=== PATIENT | female | born 1985 | race Caucasian/White ===

== ENCOUNTER 2016-07-01 07:08 | Outpatient (CLI) | payer OTHER | END 2016-07-01 07:09 | disposition home or self-care (01) | DX: R53.83 Other fatigue (principal) ==

== ENCOUNTER 2016-07-01 07:12 | Outpatient (CLI) | payer OTHER | END 2016-07-01 07:13 | disposition home or self-care (01) | DX: N91.2 Amenorrhea, unspecified (principal) ==

== ENCOUNTER 2016-07-03 08:00 | Outpatient (CLI) | payer OTHER | END 2016-07-03 08:01 | DX: Z33.1 Pregnant state, incidental (principal); N93.9 Abnormal uterine and vaginal bleeding, unspecified ==

== ENCOUNTER 2016-09-04 08:30 | Outpatient (CLI) | payer OTHER ==
[2016-09-04 12:50] LABS: EOSINOPHILS % (AUTO) 0.3 %; HCT - HEMATOCRIT 35.6 % (37.0-47.0); HGB - HEMOGLOBIN 12.2 g/dL (12.0-16.0); LYMPHOCYTES # (AUTO) 0.7 10^3/uL (1.5-3.5); MEAN CORPUSCULAR HEMOGLOBIN 30.5 pg (27.0-31.0); MEAN CORPUSCULAR HGB CONC 34.3 g/dL (32.0-36.0); MONOCYTES # (AUTO) 0.6 10^3/uL (0.0-1.0)
[2016-09-04 12:53] LABS: BASOPHILS % (AUTO) 0.3 %; EOSINOPHILS # (AUTO) 0.1 10^3/uL (0.0-0.7); LYMPHOCYTES % (AUTO) 4.9 %; MEAN CORPUSCULAR VOLUME 88.9 fL (81.0-99.0); MEAN PLATELET VOLUME 8.7 fL (7.9-10.8); NEUTROPHILS # (AUTO) 13.6 10^3/uL (1.5-6.6); NEUTROPHILS % (AUTO) 90.5 %; RED CELL DISTRIBUTION WIDTH 13.5 % (12.0-15.0)
[2016-09-04 13:14] LABS: BILIRUBIN,TOTAL 0.4 mg/dL (0.2-1.0); CALCIUM 9.5 mg/dL (8.5-10.3); CREATININE 0.6 mg/dL (0.4-1.0); POTASSIUM 3.5 mmol/L (3.5-5.0); TOTAL PROTEIN 7.1 g/dL (6.7-8.2)
[2016-09-06 13:17] LABS: TEST RESULT REPORT (())
== END 2016-09-04 08:31 | disposition home or self-care (01) ==
LOC: LAB.WCP 08:30
PROVIDERS: ATTEND Physician Assistant Medical
DX: R10.32 Left lower quadrant pain (principal); N93.9 Abnormal uterine and vaginal bleeding, unspecified; Z33.1 Pregnant state, incidental; R30.0 Dysuria; N76.0 Acute vaginitis
CPT/HCPCS: 36415; 80053; 81599; 85025; 87070; 87077; 87086; 87205; 87255; 87480; 87491; 87510; 87591; 87660

== ENCOUNTER 2017-03-27 08:00 | Outpatient (CLI) | payer OTHER | END 2017-03-27 08:01 | disposition home or self-care (01) | LOC: LAB.WCP 08:00 | PROVIDERS: ATTEND Physician Assistant Medical | DX: O46.91 Antepartum hemorrhage, unspecified, first trimester (principal) | CPT/HCPCS: 36415; 84702 ==

== ENCOUNTER 2017-03-29 13:03 | Outpatient (CLI) | payer OTHER | END 2017-03-29 13:04 | disposition home or self-care (01) | LOC: LAB 13:03 | PROVIDERS: ATTEND Physician Assistant Medical | DX: O46.91 Antepartum hemorrhage, unspecified, first trimester (principal) | CPT/HCPCS: 84702 ==

== ENCOUNTER 2017-11-19 09:21 | Inpatient (IN) | payer OTHER ==
[2017-11-19] MEDS ORDERED: fentaNYL 100 MCG/2 ML VIAL IVP PRN (09:55)
[2017-11-19] MEDS ORDERED: ONDANSETRON 4 MG/2 ML VIAL IVP PRN ×2 (09:55→18:28)
[2017-11-19] MEDS ORDERED: SODIUM CHLORIDE FLUSH 0.9% 10 ML SYRINGE IVP PRN (09:55)
[2017-11-19] MEDS ORDERED: OXYTOCIN/SODIUM CHLORIDE 500 ML IV SCH (10:00)
--- NOTE | 2017-11-19 10:00 | HISTORY & PHYSICAL EXAMINATION ---
Admit History - Instructions Morongo/Slash: -Left hand click circles element as positive or present. -Right hand click slashes element as negative or not present. - Visit Reason Visit Reason: Contractions (x18 hours, SROM @ 0400 for thick MSAF), Membranes rupture - : 2 Parity: 0 Premature: 0 Ectopic: 0 : 1 Care: positive: Other (Dr. Vides in [facility]) Risk/History: positive: Other (hx IUFD for potential cervical incompetence @ 15 weeks' EGA; cerclage placed this by Dr. Vides at [facility], on an unspecified antibiotic t/o , no progestin therapy, no MFM consult; cerclage removed @ 37 weeks' gestation) Complications This : positive: Other (hx IUFD for potential cervical incompetence @ 15 weeks' EGA; cerclage placed this by Dr. Vides at [facility], on an unspecified antibiotic t/o , no progestin therapy, no MFM consult; cerclage removed @ 37 weeks' gestation) - Mother's Labs Mother's Blood Type: positive: A Mother's RH: positive: Positive GBS: positive: Group B Step Negative Rubella Status: positive: Immune Review of Systems - Constitutional Constitutional: reports: Fatigue. denies: Fever, Chills - Cardiovascular Cariovascular: denies: Irregular heart rate, Palpitations, Chest pain, Edema - Respiratory Respiratory: reports: SOB with exertion. denies: Cough - Gastrointestinal Gastrointestinal: reports: Abdominal pain (described as severe contraction pain) . denies: Constipation, Diarrhea, Change in bowel habits, Nausea, Vomiting - Genitourinary Genitourinary: reports: Frequency, Urgency. denies: Dysuria - Musculoskeletal Musculoskeletal: reports: Back pain. denies: Muscle pain, Stiffness - Integumentary Integumentary: denies: Rash, Pruritis, Lesions - Neurological Neurological: denies: General weakness, Focal weakness, Headache, Dizziness, Numbness - Psychiatric Psychiatric: reports: Depression (described as severe, without medication; states that he is her only source of comfort & can modulate her anxiety) , Anxiety - All Other Systems All Other Systems: reports: Other (+FM, +LOF, thick MSAF since 0400) Physical - Abdominal Exam Contraction Frequency (min/apart): 3-5 Contraction Intensity: positive: Mild to moderate Uterine Resting Tone: positive: Soft - Monitoring Heart Rate Baseline: 140 Strip Review: positive: Category I - Presentation Presentation: positive: Vertex - Vaginal Exam Membranes: positive: Membranes ruptured (leaking copious thick mSAF) Dilation (in cm): 2 Effacement (%): 90 Station: positive: 0 Cervical Position: positive: Posterior - Speculum Exam Speculum Exam Performed: positive: No Findings: positive: Gross leak (thick MSAF) - Other Notes Labor Progress Note/Additional Text: Joana Young (CARA) is a 32 y/o @ 39w4d by LMP, consistent w/ 20-wk anatomy scan (only imaging on file) who presents accompanied by her , Allan, & two licensed midwives from the [facility]. Licensed midwives have limited information regarding her care, which was transferred to them by Dr. Vides from [facility] in [place], after cerclage removal at 37 weeks' gestation. They report that she presented to the center this morning @ 0800 & was found to be completely dilated w/ moderate MSAF (SROM @ 0400) at that time. She has been pushing since. They did not think they would make it to the hospital for delivery but transferred for MSAF. She reports that her water broke @ 0400 & she perceived it as clear at that time. She has been having intense uterine contractions since 1900 yesterday evening. Her reports that her care has been complicated by a hx of second trimester demise that was presumed secondary to cervical incompetence. She underwent cervical cerclage placement at [facility] by Dr. Vides this and took an unspecified antibiotic for the duration of her to prevent infection. She did not have consultation w/ MFM providers & was not on progestin therapy at any point during her . She has an anatomy scan that is available for review that is normal w/o evidence of previa. She reports she is GBS negative & that her screening labs have all be WNL, although these are not available for review @ this time. On examination, she is found to have copious thick MSAF & her SVE is 2/90/0, posterior, soft. She was hoping for no intervention & an unmedicated delivery. She is screaming in pain w/ each contraction & is extremely anxious. Her is supportive but seems moderately frazzled & reports that they are both exhausted from the duration of discomfort & lack of any restful sleep overnight. They are dismayed by the cervical exam. PMH: anxiety, depression, hx suicide attempt, bupropion 150mg XL daily & citalopram 30mg po daily PSH: D&E x2 , 12 weeks & 15 weeks OBhx: SAB x2, one at 12 weeks & 15 weeks, D&E for each GYNhx: Denies hx of STI, reports normal paps in past, HX bv SocHx: to Allan, denies DV; denies ETOH/drugs/tobacco Famhx: noncontributory PE: GEN: Gravid female, wailing in pain, unable to open eyes HEENT: Grossly normocephalic, atraumatic, assessment limited by pt behavior RESP: Unable to assess secondary to pt behavior CARDIAC: Unable to assess secondary to pt behavior ABD: Unable to assess secondary to pt intolerance, unwillingness to change positions : No lesion, copious thick MSAF, SVE: 2/90/0, posterior, soft OB: EFM BL 135bpm, +accels, occ variable decels to larry in 100s w/ spontaneous return to baseline <60 seconds, moderate variability; TOCO: UCs q3-5 min x60 seconds, palpably moderate MS: FROM t/o, but pt unwilling to move secondary to extreme discomfort, no clear deformity, no lesion SKIN: warm, well-perfused, c/d/i, multiple tattoos, piercings NEURO: Unable to adequately assess secondary to pt behavior PSYCH: extreme agitation & anxiety Plan for Labor - Plan For Labor I expect patient to be DC'd or transferred within 96 hours.: Yes Plan for Labor: 1. Extensive review of clinical scenario & need for pain management @ this time , reviewed all modalities of analgesia & recommended epidural placement, pt only interested in use of N2O @ this time, full PARQ held, will begin 2. Admit to inpatient status, place IV, CBC/type & screen for protracted labor 3. Reviewed protracted labor process, SROM x6 hours, implications of thick MSAF ; pt declines augmentation @ this time, will reassess cervical status x2 hours & augment w/ Pitocin if no cervical change @ that time 4. Awaiting remainder of medical records from [facility] 5. Continuous EFM for thick MSAF 6. Epidural PRN per pt request 7. Discussed clinical scenario w/ Classifications Officer Cc/Cm Dr. Lilian Garcia MD, who is aware of need for pediatric attendance @ delivery, will continue to update as labor progresses 8. Reviewed plan of care w/ pt, partner, RN @ bedside; all in agreement, without concerns; Dr. Stella MD, back-up SCREW MACHINE OPERATOR SINGLE SPINDLE apprised of clinical scenario
--- NOTE | 2017-11-19 10:37 | PROVIDER PROGRESS NOTE ---
Subjective - Prog Note Date Prog Note Date: 11/19/17 Prog Note Time: 10:30 - Subjective Subjective: Using N2O via self-administered mask w/ some utility, still wailing during contractions; & one LM @ bedside, supportive. Declines anesthesia @ this time. Assessment/Plan - Problem List (1) Thick meconium stained amniotic fluid Impression: Early vs. prodromal labor, dysfunctional pattern GBS negative Records received: had been taking augmentin 875mg/125mg po daily s/p placement of her cervical cerclage at [facility]; allergic to Sulfa & azithromycin; Garrett cervical cerclage placed in 4cm long cervix 05/19/[address] Vides, records indicate elective TAB followed by 1 SAB @ 15 weeks' gestation w/ 2cm cervical dilation & delivery of demised fetus, taken to OR for placental extraction/D&C but fetus delivered spontaneously, all screening labs this noted to be WNL, 1-hr gtt oddly 68mg/dL, GBS negative, UA in first trimester grew out significant gardnerella, unclear whether tx'ed or not. No MFM consultation.
[2017-11-19 10:44] LABS: BASOPHILS # (AUTO) 0.1 10^3/uL (0.0-0.1); BASOPHILS % (AUTO) 0.4 %; HGB - HEMOGLOBIN 12.4 g/dL (12.0-16.0); LYMPHOCYTES # (AUTO) 0.7 10^3/uL (1.5-3.5); LYMPHOCYTES % (AUTO) 4.7 %; MEAN CORPUSCULAR HEMOGLOBIN 29.3 pg (27.0-31.0); MEAN CORPUSCULAR HGB CONC 34.7 g/dL (32.0-36.0); MEAN CORPUSCULAR VOLUME 84.5 fL (81.0-99.0); MEAN PLATELET VOLUME 9.6 fL (7.9-10.8); MONOCYTES # (AUTO) 0.3 10^3/uL (0.0-1.0); NEUTROPHILS # (AUTO) 14.2 10^3/uL (1.5-6.6); NEUTROPHILS % (AUTO) 92.9 %; PLT - PLATELET COUNT 188 10^3/uL (130-450); RED BLOOD COUNT 4.25 10^6/uL (4.20-5.40); RED CELL DISTRIBUTION WIDTH 13.2 % (12.0-15.0); WHITE BLOOD COUNT 15.3 x10^3/uL (4.8-10.8)
[2017-11-19] MEDS ORDERED: WITCH HAZEL/GLYCERIN 1 EACH MED..PAD TOP PRN (12:05)
[2017-11-19] MEDS: LACTATED RINGERS 1,000 ML IV SCH ×3 (17:12→19:08)
[2017-11-19] MEDS: ACETAMINOPHEN 325 MG TABLET PO SCH (17:16)
[2017-11-19] MEDS: SODIUM CHLORIDE FLUSH 0.9% 10 ML SYRINGE IVP SCH (17:17)
--- NOTE | 2017-11-19 17:17 | PROVIDER PROGRESS NOTE ---
Labor Progress Note - Uterine Monitoring Uterine Monitoring Mode: positive: External toco Contraction Frequency (min/apart): 3-5 Contraction Intensity: positive: Moderate Uterine Resting Tone: positive: Soft - Monitoring Monitor Mode: positive: External ultrasound Heart Rate Baseline: 135 Heart Rate Variability: positive: Moderate (6-25 bmp) Accelerations: positive: Present, 15x15 Decelerations: positive: None Strip Review: positive: Category I - Vaginal Exam Dilation (in cm): 4 Effacement (%): 100 Station: 1 Cervical Position: Anterior (KARLA positioning) - Labor Progress Note Labor Progress Note/Additional Text: S: Mariella is screaming w/ contractions. , Allan, & LM are present @ the bedside & supportive. She has resisted intervention to this point, although she has used N2O w/ some relief. O: AAOx3, distressed gravid female VSSE EFM: BL 135bpm, +accels, no decels, mod madhuri TOCO: UCs q3-5 min x60 seconds, palpably moderate SVE: 4/100/+1, ongoing leakage of copious thick MSAF, position KARLA A: 32 y/o @ 39w4d by LMP w/ concordant 20-wk US, transfer from [facility] for MSAF Minimal cervical change management manager a period of 7 hours Inadequate pain control w/ N2O as only agent GBS negative, SROM x13.25 hours, afebrile FHTs cat I, thick MSAF Unusual hx of cerclage placement in 4cm cervix w/ hx IUFD @ 16 weeks' gestation P: 1. Extensive review of clinical scenario w/ pt, partner & LM, reviewed risks of continuing w/ dysfunctional labor pattern & risks r/t prolonged ROM & recommend adequate anesthesia w/ intervention as clinically warranted thereafter 2. Recommend Pitocin augmentation s/p epidural placement, pt & partner concur 3. Reviewed plan of care w/ pt, partner, RN @ bedside; all in agreement, without concerns; anesthesia notified of desire for epidural. Dr. Stella MD, back up TYPECASTING MACHINE OPERATOR apprised of clinical scenario, concurs w/ plan of care
[2017-11-19] MEDS ORDERED: fent/BUPIV 2 MCG/0.125% 250 ML EP ONE (17:41)
[2017-11-19] MEDS ORDERED: ePHEDrine 50 MG/ML VIAL IVP ONE (18:00)
[2017-11-19] MEDS ORDERED: diphenhydrAMINE INJ 50 MG/ML VIAL IVP PRN (18:28)
[2017-11-19] MEDS ORDERED: fent/BUPIV 2 MCG/0.125% 250 ML EP PRN (18:28)
[2017-11-19] MEDS ORDERED: NALBUPHINE 10 MG/ML AMP IVP PRN (18:28)
[2017-11-19 19:19] LABS: BILIRUBIN,URINE NEGATIVE (NEGATIVE); GLUCOSE, URINE (UA) NEGATIVE (NEGATIVE); KETONES,URINE (UA) >=80 mg/dL (NEGATIVE); LEUKOCYTE ESTERASE, URINE NEGATIVE (NEGATIVE); NITRITE,URINE NEGATIVE (NEGATIVE); OCCULT BLOOD,URINE SMALL (NEGATIVE); PROTEIN,URINE NEGATIVE (NEGATIVE); UROBILINOGEN,URINE 0.2 (NORMAL) E.U./dL (NORMAL)
[2017-11-19 19:21] LABS: CLARITY,URINE CLEAR (CLEAR)
[2017-11-19 19:32] LABS: BACTERIA,URINE None Seen /HPF (None Seen); SQUAMOUS EPITHELIAL CELL,UR FEW Squamous (<= Few)
[2017-11-19] MEDS: OXYTOCIN/SODIUM CHLORIDE 500 ML IV SCH (22:01)
--- NOTE | 2017-11-19 22:25 | PROVIDER PROGRESS NOTE ---
Labor Progress Note - Uterine Monitoring Contraction Frequency (min/apart): q6 Contraction Intensity: positive: Mild Uterine Resting Tone: positive: Soft - Monitoring Monitor Mode: positive: External ultrasound Heart Rate Variability: positive: Moderate (6-25 bmp) Accelerations: positive: Present, 10x10 (=/32 wks) Decelerations: positive: None Strip Review: positive: Category I - Vaginal Exam Dilation (in cm): 6 Effacement (%): 80% Station: 1 Cervical Position: Midposition - Labor Progress Note Labor Progress Note/Additional Text: Progress of labor has been slow due to infrequent and mild contractions. I performed Dennis palpation and estimate the weight to be 7 pounds and a KARLA position. Scant fluid on glove with no blood. Patient is reported to have thick neck on presentation but this was not demonstrated on the current exam. I discussed the current clinical situation with the patient and her partner. Slow progress is expected given the inadequacy of the uterine contractions. Clinically the pelvis seems adequate for 7-1/2 pound baby. She has been ruptured since 444 and prolonged rupture increases chances of the chorion amnionitis, uterus refractory to Pitocin, section and sepsis. It is advantageous to hasten labor progress at this point with Pitocin drip. Explained the mechanism of Pitocin, titration schedule and disadvantages including hyper stim, occult cord prolapse and resultant . Balanced against the high likelihood of slow progress and cysts ascending infection Pitocin is best. After explanation family concurs and Pitocin augmentation orders were written
[2017-11-19 22:42] LABS: BASOPHILS # (AUTO) 0.2 10^3/uL (0.0-0.1); BASOPHILS % (AUTO) 0.9 %; HGB - HEMOGLOBIN 11.2 g/dL (12.0-16.0); MEAN CORPUSCULAR HEMOGLOBIN 29.6 pg (27.0-31.0); MEAN CORPUSCULAR HGB CONC 34.7 g/dL (32.0-36.0); MEAN CORPUSCULAR VOLUME 85.3 fL (81.0-99.0); MEAN PLATELET VOLUME 9.4 fL (7.9-10.8); MONOCYTES # (AUTO) 0.6 10^3/uL (0.0-1.0); MONOCYTES % (AUTO) 3.9 %; NEUTROPHILS # (AUTO) 14.9 10^3/uL (1.5-6.6); NEUTROPHILS % (AUTO) 89.2 %; PLT - PLATELET COUNT 205 10^3/uL (130-450); RED BLOOD COUNT 3.78 10^6/uL (4.20-5.40); RED CELL DISTRIBUTION WIDTH 13.4 % (12.0-15.0); WHITE BLOOD COUNT 16.7 x10^3/uL (4.8-10.8)
[2017-11-20] MEDS: LACTATED RINGERS 1,000 ML IV SCH (06:22)
[2017-11-20] MEDS ORDERED: CITALOPRAM 10 MG TABLET PO SCH (09:00)
[2017-11-20] MEDS ORDERED: LIDOCAINE 1% 50 ML MDV TD SCH (10:00)
[2017-11-20] MEDS ORDERED: MINERAL OIL LIGHT 10 ML MC SCH (10:00)
[2017-11-20] MEDS: OXYTOCIN/SODIUM CHLORIDE 250 ML IV ONE ×2 (10:30→15:30)
--- NOTE | 2017-11-20 10:48 | PROVIDER PROGRESS NOTE ---
Labor Progress Note - Uterine Monitoring Uterine Monitoring Mode: positive: External toco Contraction Frequency (min/apart): q3 Contraction Intensity: positive: Moderate Uterine Resting Tone: positive: Soft - Monitoring Monitor Mode: positive: External ultrasound Heart Rate Baseline: 125 Heart Rate Variability: positive: Moderate (6-25 bmp) Accelerations: positive: Present, 15x15 Decelerations: positive: None Strip Review: positive: Category I - Vaginal Exam Dilation (in cm): 9 Effacement (%): 80% Station: 1 Cervical Position: Anterior - Labor Progress Note Labor Progress Note/Additional Text: Patient is progressed through the active phase of labor and is now near completion. No meconium was observed on my exam. Previously heavy meconium was noted and therefore will alert Dr. Abdoul Shukla management assistant to standby for . We will not have patient push until Dr. Shukla is close at hand.
--- NOTE | 2017-11-20 10:51 | PROVIDER PROGRESS NOTE ---
Subjective - Prog Note Date Prog Note Date: 11/20/17 Prog Note Time: 05:20 - Subjective Subjective: 0300 cervical check reported as 7 cm's 0 station by nursing. Category 1 strip. Augmentation continues.. Objective - Vital Signs/Intake & Output Intake & Output: Intake & Output 11/17/17 11/18/17 11/19/17 11/20/17 23:59 23:59 23:59 23:59 Intake Total 1000 1000 Balance 1000 1000 - Lab Results Fish Bones: 11/19/17 22:30 Other Labs: Lab Results x24hrs 11/19/17 11/19/17 11/19/17 Range/Units 22:30 22:30 18:50 WBC 16.7 H (4.8-10.8) x10^3/uL RBC 3.78 L (4.20-5.40) 10^6/uL Hgb 11.2 L (12.0-16.0) g/dL Hct 32.3 L (37.0-47.0) % MCV 85.3 (81.0-99.0) fL MCH 29.6 (27.0-31.0) pg MCHC 34.7 (32.0-36.0) g/dL RDW 13.4 (12.0-15.0) % Plt Count 205 (130-450) 10^3/uL MPV 9.4 (7.9-10.8) fL Neut # (Auto) 14.9 H (1.5-6.6) 10^3/uL Lymph # (Auto) 1.0 L (1.5-3.5) 10^3/uL Dukes # (Auto) 0.6 (0.0-1.0) 10^3/uL Eos # (Auto) 0.0 (0.0-0.7) 10^3/uL Baso # (Auto) 0.2 H (0.0-0.1) 10^3/uL Absolute Nucleated RBC 0.00 x10^3/uL Nucleated RBC % 0.0 /100WBC Urine Color YELLOW Urine Clarity CLEAR (CLEAR) Urine pH 6.0 (5.0-7.5) PH Ur Specific Basile 1.010 (1.002-1.030) Urine Protein NEGATIVE (NEGATIVE) mg/dL Urine Glucose (UA) NEGATIVE (NEGATIVE) mg/dL Urine Ketones >=80 H (NEGATIVE) mg/dL Urine Occult Blood SMALL H (NEGATIVE) Urine Nitrite NEGATIVE (NEGATIVE) Urine Bilirubin NEGATIVE (NEGATIVE) Urine Urobilinogen 0.2 (NORMAL) (NORMAL) E.U./dL Ur Leukocyte Esterase NEGATIVE (NEGATIVE) Urine RBC 6-10 H (0-5) /HPF Urine WBC 0-3 (0-5) /HPF Ur Squamous Epith Cells FEW Squamous (<= Few) Urine Bacteria None Seen (None Seen) /HPF Ur Microscopic Review INDICATED Urine Culture Comments NOT INDICATED Blood Type Blood Type Recheck A POSITIVE Antibody Screen 11/19/17 11/19/17 Range/Units 10:25 10:25 WBC 15.3 H (4.8-10.8) x10^3/uL RBC 4.25 (4.20-5.40) 10^6/uL Hgb 12.4 (12.0-16.0) g/dL Hct 35.9 L (37.0-47.0) % MCV 84.5 (81.0-99.0) fL MCH 29.3 (27.0-31.0) pg MCHC 34.7 (32.0-36.0) g/dL RDW 13.2 (12.0-15.0) % Plt Count 188 (130-450) 10^3/uL MPV 9.6 (7.9-10.8) fL Neut # (Auto) 14.2 H (1.5-6.6) 10^3/uL Lymph # (Auto) 0.7 L (1.5-3.5) 10^3/uL Dukes # (Auto) 0.3 (0.0-1.0) 10^3/uL Eos # (Auto) 0.0 (0.0-0.7) 10^3/uL Baso # (Auto) 0.1 (0.0-0.1) 10^3/uL Absolute Nucleated RBC 0.01 x10^3/uL Nucleated RBC % 0.0 /100WBC Urine Color Urine Clarity (CLEAR) Urine pH (5.0-7.5) PH Ur Specific Basile (1.002-1.030) Urine Protein (NEGATIVE) mg/dL Urine Glucose (UA) (NEGATIVE) mg/dL Urine Ketones (NEGATIVE) mg/dL Urine Occult Blood (NEGATIVE) Urine Nitrite (NEGATIVE) Urine Bilirubin (NEGATIVE) Urine Urobilinogen (NORMAL) E.U./dL Ur Leukocyte Esterase (NEGATIVE) Urine RBC (0-5) /HPF Urine WBC (0-5) /HPF Ur Squamous Epith Cells (<= Few) Urine Bacteria (None Seen) /HPF Ur Microscopic Review Urine Culture Comments Blood Type A POSITIVE Blood Type Recheck Antibody Screen NEGATIVE
--- NOTE | 2017-11-20 10:54 | PROVIDER PROGRESS NOTE ---
Labor Progress Note - Uterine Monitoring Uterine Monitoring Mode: positive: External toco Contraction Frequency (min/apart): Contractions every 2.5 minutes Contraction Intensity: positive: Moderate Uterine Resting Tone: positive: Soft - Monitoring Monitor Mode: positive: External ultrasound Heart Rate Variability: positive: Moderate (6-25 bmp) Accelerations: positive: Present, 15x15 Decelerations: positive: Early Strip Review: positive: Category I - Vaginal Exam Dilation (in cm): 10 Effacement (%): 100% Station: 2 - Labor Progress Note Labor Progress Note/Additional Text: Patient began pushing at 0742 hrs. and is currently expanding a good effort. Good support and coaching. Upbeat mood. Currently doing push and stretch method as well as perineal hot packs. Descent is not been as rapid as desired and discussed possibility of vacuum-assisted delivery.
--- NOTE | 2017-11-20 10:58 | DELIVERY NOTE ---
Delivery Note - Labor Labor: positive: Augmented by oxytocin - Delivery Method Delivery Method: positive: Vacuum assist - Presentation Presentation: positive: KARLA - left occiput anterior - Nuchal Cord Nuchal Cord: positive: None - Anesthetic Anesthetic Type: Anesthetic: positive: Lidocaine - 1% plain Volume: positive: Other (20 cc) - Amniotic Fluid Description Amniotic Fluid Description: positive: Moderate meconium (Previously reported as thick meconium), Other (Non-foul) - Vacuum Use Indication for Vacuum Use: positive: Shortening of 2nd stage for maternal benefit Type of Vacuum Cup: positive: Cup: Rigid Vacuum Extraction: positive: Successful Number of pop-offs: 1 - Episiotomy Type Episiotomy Type: positive: None - Laceration Laceration: positive: 2nd degree (Midline; no extension into the anal sphincter rectum) - Suture Suture Type: positive: Vicryl Suture Size: positive: 2-0, 3-0 - Delivery Outcome Delivery Outcome: positive: Livebirth - [place]: positive: Placed in direct skin contact with mother, Suctioned, Warmed , Other (Dr. Abdoul Shukla of pediatrics in attendance reference his notes.) sex: positive: Female ( time 1003 hrs. Weight 6 pounds 4.3 ounces; Apgars 7/9) - Cord Cord: positive: 3 vessels (No cord entanglement) - Placenta Placenta: positive: Intact, Other (Grade 2 placenta) - Estimated Blood Loss Estimated Blood Loss (in cc): 400 - Post Delivery Events Post Delivery Events: positive: No post delivery events - Delivery Comments (Free Text/Narrative) Delivery Comments (Free Text/Narrative): Mrs. Young pushed with good effort for over an hour and a half. During that time prep portion stretch method of perineal massage was used. The head was fairly fixed at a KARLA position +2. I attempted on several occasions to turn it to the OA. Patient became fatigued. We had an informed discussion on the use of vacuum or forceps delivery to facilitate the labor. She understands vacuum requires her continued effort and may be uncomfortable. Risks of vacuum include cephalohematoma, shoulder dystocia, laceration or episiotomy, and failed vacuum necessitating emergent section. Patient gave verbal permission for the application of the vacuum. At a resting phase the Kiwi vacuum was demonstrated to the patient. She states she understands that she used and had read about it. Vacuum was then slipped into the vagina and applied to the vertex at the flexion point. With the next push the vacuum was pumped to the green zone and appropriate amount of pressure/ traction applied, respecting the pelvic axis. First application move the head down from +2 to +3-4. Patient noted increased pain and pressure and was encouraged to breathe through. Second application was done and once again appropriate of vacuum setting and traction was applied. This moved the head to near and converted presentation to OA but resulted in pop-off. Mineral oil was used to lubricate the vagina. Perineal massage was continued. Third application effected vaginal delivery. Once again appropriate pressure and traction was applied which resulted in extension.. Head was atraumatically delivered but shoulders resulted in midline laceration. There were no difficulties in delivering the shoulders, patient was anxious and pushed spontaneously. The was then placed on the maternal abdomen under Dr. Johnson's supervision. When cord pulsations stopped, the cord was doubly clamped intent transected. Cord blood samples and cord blood samples were sent. After initial. Of time with the mother was moved to warmer. Reference Dr. Shukla's notes. weight = 6 pounds, 4.3 ounces; Apgars 7/9; arterial cord pH 7.195 with base excess of -7.8 venous cord pH 7.304 base excess -5.6 The vaginal laceration was inspected and the extent assessed. Vaginal packing was used to tamp and on bleeding and to provide clear access to the laceration. The perineal area was injected with 20 cc of 1% lidocaine and good anesthetic effect was present. The vaginal tube was reconstructed with a running interlocked stitch of 2-0 Vicryl. Crowns stitch was made with 2-0 Vicryl. Interrupted sutures of 2-0 Vicryl were used to close the deep space. The anal sphincter was visualized and not encroached on. Perineal skin was closed with multiple interrupted sutures of 3-0 Vicryl. Post repair rectal exam confirmed no intraluminal stitches. The placenta was delivered intact shortly thereafter. It was inspected and found to be grade 2. Bleeding was stemmed with uterine massage and Pitocin. Mother father bonded well with baby. Baby began up breast-feeding shortly after .
[2017-11-20] MEDS ORDERED: diphenhydrAMINE 25 MG CAPSULE PO PRN (11:15)
[2017-11-20] MEDS ORDERED: ZOLPIDEM 5 MG TABLET PO PRN (11:15)
[2017-11-20] MEDS ORDERED: WITCH HAZEL/GLYCERIN 1 EACH MED..PAD TOP PRN (11:15)
[2017-11-20] MEDS ORDERED: HYDROCORTISONE/PRAMOXINE 10 GM PR PRN (11:15)
[2017-11-20] MEDS: IBUPROFEN 600 MG TABLET PO SCH ×2 (13:00→22:33)
[2017-11-20] MEDS: buPROPion XL 150 MG TABLET PO SCH (13:07)
[2017-11-20] MEDS: HYDROcod/ACETAM 5/325 MG TABLET PO PRN ×3 (13:47→22:33)
[2017-11-20] MEDS: SERTRALINE 25 MG TABLET PO SCH (14:33)
[2017-11-20] MEDS: DOCUSATE SODIUM 100 MG CAPSULE PO SCH (21:25)
[2017-11-21] MEDS: HYDROcod/ACETAM 5/325 MG TABLET PO PRN ×3 (03:45→12:44)
--- NOTE | 2017-11-21 07:29 | PROVIDER PROGRESS NOTE ---
Subjective - General Admit Date: 11/19/17 Procedure Date: 11/20/17 Post Op Days: 1 Procedure Performed: Low vacuum delivery with midline laceration repair - Review of Systems Wound/Incisions: positive: Healing well General: positive: No symptoms HEENT: positive: No symptoms Pulmonary: positive: No symptoms Cardiovascular: positive: No symptoms Gastrointestinal: positive: No symptoms, Flatus Genitourinary: positive: Other ("Sore bottom" No foul lochia, no bulges no reported problems) Musculoskeletal: positive: No symptoms Skin: positive: No symptoms All Other Systems: positive: Other (+FM, +LOF, thick MSAF since 0400) Objective - Patient Data Vital Signs: Vital Signs x48h Temp Pulse Resp BP Pulse Ox 11/21/17 03:47 97.7 F 57 L 20 109/71 100 11/21/17 00:15 98.2 F 69 16 109/69 98 Weight: Weight 11/19/17 11/20/17 11/21/17 23:59 23:59 23:59 Weight (kg) 150 kg Intake & Output: Intake and Output Totals x24h 11/19/17 11/20/17 11/21/17 23:59 23:59 23:59 Intake Total 1000 1662.483 Output Total 1425 Balance 1000 237.483 - Lab Results Lab Results: 11/19/17 22:30 Other Lab Results: Lab Results x24hrs 11/19/17 Range/Units 22:30 Blood Type Recheck A POSITIVE - Current Medications Current Medications: Current Medications Generic Name Dose Route Start Last Admin Trade Name Freq PRN Reason Stop Dose Admin Acetaminophen 650 mg 11/19/17 10:00 11/19/17 17:16 Tylenol PO Not Given Q6H ELI Hydrocodone Bitart/Acetaminophen 1 tab 11/20/17 11:15 11/21/17 03:45 [place] 5/325 PO 1 tab Q4HR PRN Administration PAIN Bupropion HCl 150 mg 11/20/17 09:00 11/20/17 13:07 Wellbutrin Xl PO 150 mg DAILY ELI Administration Docusate Sodium 100 mg 11/20/17 21:00 11/20/17 21:25 Colace 100mg Capsule PO 100 mg BID ELI Administration Hydrocortisone/Pramoxine 1 spray 11/20/17 11:15 11/20/17 12:00 Epifoam SC 1 spray QID PRN Administration Hemorrhoids Oxytocin/Sodium Chloride 500 mls @ 1 mls/hr 11/19/17 22:15 11/20/17 10:30 Pitocin/Sodium Chloride IV 0 milliunit/min TITR ELI 0 mls/hr 1 MILLIUNIT/MIN Titration Ibuprofen 600 mg 11/20/17 12:00 11/20/17 22:33 Motrin PO 600 mg Q6H ELI Administration Ondansetron HCl 4 mg 11/19/17 09:55 11/19/17 18:29 Zofran Inj IVP 4 mg Q4H PRN Administration Nausea / Vomiting Sertraline HCl 25 mg 11/20/17 15:00 11/20/17 14:33 Zoloft PO 25 mg DAILY ELI Administration Sodium Chloride 10 ml 11/19/17 17:00 11/19/17 17:17 Normal Saline Flush 0.9% IVP Not Given 0100,0900,1700 ELI Witch Paige/Glycerin 1 each 11/19/17 12:05 11/19/17 12:09 Tucks TOP 1 each PRN PRN Administration ITCHING Physical Exam - Physical Exam General: positive: No acute distress, Alert HEENT: positive: Moist mucous membranes Neck: positive: Supple w/out meningeal sx Abdomen: positive: Other (Benign abdominal exam) Female : positive: Enlarged uterus (16 weeks size firm nontender), Other ( Reported scant non-foul lochia rubra; no reported disruption of repair stitches) Skin: positive: Warm and dry Neurologic: positive: Alert and Oriented X 3, Normal Sensation, Normal Speech Assessment/Plan - Assessment/Plan Assessment: Patient recovering without difficulty from low vacuum extraction which yielded a living onset 6 lbs. 4 oz. female . Thus far the infant has thrived and there is no problem with nursing. Rh+; rubella immune; hepatitis B surface antigen negative. Emotionally and physically patient adjusting well to motherhood Plan: Plan * Discharge today once infant cleared by pediatrics * Callback instructions reviewed inclusive of: Followed discharge, excessive bleeding, fever, wound difficulty, abdominal pain * Discharge medications Motrin 600 every 6 hours, vitamins * [facility] with [facility] with [facility] in 6 weeks.
--- NOTE | 2017-11-21 07:38 | Discharge Plan ---
Discharge Plan Disposition: 01 Home, Self Care Condition: Good Diet: Regular Activity Restrictions: Activity as Tolerated Shower Restrictions: No Driving Restrictions: No Weight Bearing: Full Weight No Smoking: If you smoke, Please STOP! Call for help. Follow-up with: Vicente Douglas MD [Provider Admit Priv/Credential] -
[2017-11-21 08:27] LABS: BASOPHILS % (AUTO) 0.3 %; EOSINOPHILS % (AUTO) 0.3 %; HGB - HEMOGLOBIN 8.3 g/dL (12.0-16.0); LYMPHOCYTES # (AUTO) 1.3 10^3/uL (1.5-3.5); LYMPHOCYTES % (AUTO) 12.5 %; MEAN CORPUSCULAR HEMOGLOBIN 29.3 pg (27.0-31.0); MEAN CORPUSCULAR HGB CONC 33.8 g/dL (32.0-36.0); MEAN CORPUSCULAR VOLUME 86.8 fL (81.0-99.0); MEAN PLATELET VOLUME 9.4 fL (7.9-10.8); MONOCYTES # (AUTO) 0.4 10^3/uL (0.0-1.0); MONOCYTES % (AUTO) 3.3 %; NEUTROPHILS % (AUTO) 83.6 %; PLT - PLATELET COUNT 144 10^3/uL (130-450); RED BLOOD COUNT 2.84 10^6/uL (4.20-5.40); RED CELL DISTRIBUTION WIDTH 13.2 % (12.0-15.0); WHITE BLOOD COUNT 10.7 x10^3/uL (4.8-10.8)
[2017-11-21] MEDS: buPROPion XL 150 MG TABLET PO SCH (08:32)
[2017-11-21] MEDS: IBUPROFEN 600 MG TABLET PO SCH ×3 (08:32→12:43)
[2017-11-21] MEDS: DOCUSATE SODIUM 100 MG CAPSULE PO SCH (08:32)
[2017-11-21] MEDS: SERTRALINE 25 MG TABLET PO SCH (08:33)
[2017-11-21] MEDS: ACETAMINOPHEN 325 MG TABLET PO SCH ×5 (10:08→10:15)
[2017-11-21] MEDS: SODIUM CHLORIDE FLUSH 0.9% 10 ML SYRINGE IVP SCH ×4 (10:08→10:14)
[2017-11-21] MEDS: LACTATED RINGERS 1,000 ML IV SCH ×3 (10:09→10:14)
[2017-11-21] MEDS: OXYTOCIN/SODIUM CHLORIDE 500 ML IV SCH (10:09)
[2017-11-21 13:00] VITALS: BP 115/69
--- NOTE | 2017-11-21 13:58 | Labor Flowsheet ---
Labor Flowsheet Datetime Report Generated by CPN: 11/21/2017 13:57 Datetime: 11/21/2017 12:59 VITAL SIGNS NBP Sys/Keiko/Mean (mmHg): 115 : 69 : 79 Pulse: 85 LaborFlag: Labor Datetime: 11/20/2017 10:49 SpO2 (%): 98 Datetime: 11/20/2017 09:43 Temperature (C): 37.4 Datetime: 11/20/2017 09:30 UTERINE ACTIVITY Monitor Mode: External Frequency (min): 2-3 Quality: Strong Duration (sec): 60+ Pattern: Normal: <= 5 Contractions in 10 Minutes Resting Tone (Palpate): Relaxed ASSESSMENT A Monitor Mode: External US FHR Baseline Rate : 145 Variability: Moderate 6-25 bpm Accelerations: 15X15 Decelerations: Early; Variable Category: Category II Oxygen Method: Room Air Datetime: 11/20/2017 09:15 FHR Baseline Changes: No Baseline Change Datetime: 11/20/2017 08:45 Pitocin Checklist: At Least 1 Acceleration of 15 bpm x 15 Seconds in 30 Minutes or Adequate Variabi lity; No More than 1 Late Deceleration Occurred in Past 30 Minutes Datetime: 11/20/2017 08:01 Respirations: 16 Datetime: 11/20/2017 08:00 Contraction Comments: Patient pushing Datetime: 11/20/2017 07:45 Stage of : Labor Datetime: 11/20/2017 07:41 STAGE 2 Pushing Position: Pushing with Contractions Pushing Progress: Descent with Pushing Datetime: 11/20/2017 07:07 COMMUNICATION Communication: Call/Page Placed to Provider Communication Comments: Dr. Morejon called to give report about pt and request his presence @ Datetime: 11/20/2017 06:40 Station: 2 Exam by: Dr. Douglas Vaginal Bleeding: Normal Show Cervix, Consistency: Soft Cervix, Position: Anterior Vaginal Exam Comments: "rim" present Datetime: 11/20/2017 06:06 MEDICATIONS Pitocin (milliunits): Increased to @ 13 Datetime: 11/20/2017 05:55 Monitor Interventions for FHR: Ultrasound Adjusted Pain Presence: None/Denies Datetime: 11/20/2017 05:30 Pain Coping: Sleeping Pain Assessment Comments: no c/o pain Datetime: 11/20/2017 03:18 Anesthesia Level Check: T8- Ribs Datetime: 11/20/2017 03:15 Patient Care Comments: 300ml UO Datetime: 11/20/2017 03:13 VAGINAL EXAM Dilatation (cm): 7.0 Effacement (%): 80 Datetime: 11/20/2017 02:30 MATERNAL ASSESSMENT Level of Consciousness: Fully Conscious Headache: Denies Breath Sounds, Left: Clear and Equal Breath Sounds, Right: Clear and Equal Nausea/Vomiting: Denies RUQ Epigastric Pain: Denies Datetime: 11/20/2017 02:27 Temperature Route: Oral PAIN Pain Scale: 2 Pain Type: Contraction Pain Location: Abdomen Datetime: 11/20/2017 00:30 Vibroacoustic Stim: Datetime: 11/20/2017 00:04 Monitor Interventions for UA: [place] Adjusted Datetime: 11/20/2017 00:03 PATIENT CARE IV/Blood Work: New IV Bag Hung Datetime: 11/20/2017 00:00 DTR's/Clonus: DTRs 2+; No Clonus Datetime: 11/19/2017 23:30 Actions for Decelerations: Side to Side Datetime: 11/19/2017 21:48 Provider Reviewed Strip: Yes Notification Reason: Status; Labor Status Datetime: 11/19/2017 19:56 TEACHING Instructional Method: Verbal Plan of Care: Plan of Care Discussed; Vaginal Delivery; Labor Unit Routine: [place] to Room Labor/Induction: Labor Stages Pain Management: Epidural Related: Activity and Rest Datetime: 11/19/2017 18:54 Patient Position/Activity: Right Lateral Datetime: 11/19/2017 18:50 I/O Interventions: Ward Cath Inserted Datetime: 11/19/2017 18:22 Anesthesia Interventions Other: Ephedrine Anesthesia Comments: given by MATURITY CHECKER Datetime: 11/19/2017 18:04 Epidural Procedure: Loading Dose Datetime: 11/19/2017 17:48 ANESTHESIA Epidural Positioning: Sitting Datetime: 11/19/2017 17:47 PROCEDURE TIME OUT Procedure Verify: Correct Patient Identity; Correct Side and Site are Marked; Accurate Procedure Co nsent Form; Agreement on Procedure to be Done; Correct Patient Position; Relevant Images and Results are Properly Labeled and Displayed; Addressed Need to Administer Antibiotics or Fluids for Irrigation ; Safety Precautions Based on Patient History or Medication Use Datetime: 11/19/2017 17:03 Provider Notified (Name): Milagrosa Datetime: 11/19/2017 15:50 Comments: difficult to monitor FHTs d/t pt mvmt during ctx. Datetime: 11/19/2017 13:48 Hygiene: Underpad Changed
--- NOTE | 2017-11-28 12:34 | DISCHARGE SUMMARY ---
Physician: Vicente Douglas MD DATE OF ADMISSION: 11/19/2017 DATE OF DISCHARGE: 11/21/2017 DIAGNOSIS: [place] transfer due to thick meconium and failure to progress. PROCEDURES 1. Low vacuum extraction delivery. 2. Repair of minor second-degree midline laceration repair (Dr. Vicente Douglas). CONSULTANTS: Abdoul Morejon M.D., pediatrics. HISTORY: The patient was transferred from [facility] for reported complete dilation, but failure to deliver. She had been yolette for 18 hours, and reported rupture of membranes at 0400 including thick meconium. The patient is a 32-year-old , 3, para 0, who received her care in [place] with a family practitioner, Dr. Vides, and transferred subsequently to [facility]. Her pren atal history is significant for IUFD with a potential cervical incompetence and 15 weeks IUGR. Cercl age was placed in this by Dr. Vides at . The cerclage was then removed at 3 7 weeks. The patient's current EGA is 39 weeks 4 days by LMP, and consistent with 20-week anatomy sc an. Vaginal exam was initially reported as near completion; however, on initial evaluation by nurse drier operator helper, it was found to be 2 cm, 90%, and 0 station. Though thick meconium was reported, it was not confirmed. Please reference Que Montgomery, certified nurse drier operator helper, admission H and P. Patient was admitted, and at first refused intervention. With time, she accepted an epidural, but wa s resistive to Pitocin. It was explained to her the purpose of Pitocin and with informed consent, e allowed augmentation. With augmentation, the patient entered the active phase and smoothly dilated to completion. Referenc e my progress notes. At the time of delivery, moderate meconium was noted. The patient pushed with excellent effort for over two hours with no progress beyond +2 station. Use of vacuum cup and vacuum delivery was explained to the patient and her . Informed consent was given. Uneventful vacu um delivery was accomplished from an KARLA position. A living female was born at 1003 hours, we ighing 6 pounds 4.3 ounces, and scoring Apgars of 7 and 9. Cord pHs were normal: Arterial pH 7.195, base excess -8, venous pH 7.304, base excess -5.6. There was a minor midline laceration, which was uneventfully repaired in layers. Placenta was extracted intact. Grade II. Total blood loss estimat ed at 400. Mother and baby and father all bonded well. Dr. Morejon was in attendance. Post-delivery, the patient did well, rapidly advancing full diet and activity. She breastfed without difficulty. On 11/21/2017, she strongly desired discharge home. She was given complete wound care and followup instructions. Post-delivery hemoglobin 11.2. DISCHARGE MEDICATIONS 1. Acetaminophen. 2. [place]. 3. Colace. LABORATORY DATA: Basic labs, Rh positive, rubella immune, hepatitis B surface antigen negative, GBS negative. FOLLOWUP: Followup in two weeks for wound check. TD: 11/28/2017 10:28
== END 2017-11-21 13:42 | disposition home or self-care (01) | DRG 775 ==
LOC: WFO 09:21 → FBP 09:22 → WFO 09:54 → FBP 09:55
PROVIDERS: ADMIT Registered Nurse; ATTEND Obstetrics & Gynecology
PROC: 10D07Z6 Extraction of Products of Conception, Vacuum, Via Natural or Artificial Opening (ICD-10-PCS; principal; 2017-11-20)
PROC: 0KQM0ZZ Repair Perineum Muscle, Open Approach (ICD-10-PCS; 2017-11-20)
DX: O77.0 Labor and delivery complicated by meconium in amniotic fluid (principal); O42.02 Full-term premature rupture of membranes, onset of labor within 24 hours of rupture; O64.8XX0 Obstructed labor due to other malposition and malpresentation, not applicable or unspecified; O75.81 Maternal exhaustion complicating labor and delivery; O70.1 Second degree perineal laceration during delivery; O99.344 Other mental disorders complicating childbirth; F41.9 Anxiety disorder, unspecified; F32.9 Major depressive disorder, single episode, unspecified; Z37.0 Single live birth; Z3A.39 39 weeks gestation of pregnancy; Z79.2 Long term (current) use of antibiotics; Z87.51 Personal history of pre-term labor; Z91.5 Personal history of self-harm; Z79.899 Other long term (current) drug therapy; Z88.1 Allergy status to other antibiotic agents
CPT/HCPCS: 36415; 81001; 81003; 85025; 86850; 86900; 86901; 87086

== ENCOUNTER 2018-07-21 17:20 | Outpatient (CLI) | payer OTHER ==
--- NOTE | 2018-07-21 19:20 | Ultrasound Report ---
Reason: SPOTTING Procedure Date: 07/21/2018 Accession Number: [id number] / [id number] Procedure: US - Pelvic w/Transvaginal CPT Code: FULL RESULT: EXAM: PELVIC ULTRASOUND EXAM DATE: 07/21/2018 05:26 PM. CLINICAL HISTORY: SPOTTING. LMP 07/21/2018 COMPARISON: 07/10/2012. TECHNIQUE: Realtime transabdominal pelvic scan performed to identify the uterus and adnexa and as an overview of other pelvic structures, followed by transvaginal scan to provide greater detail of the uterus and adnexa, with static image documentation. FINDINGS: Uterus: 7.1 x 3.2 x 4.6 cm, volume 55 cc. Anteverted position. Normal overall size and echotexture. Masses: None. Endometrium: 2.7 mm. Normal. Cervix: Unremarkable. Right Ovary: 2.2 x 1.4 x 1.8 cm, volume 2.9 cc. Normal echotexture and blood flow. Left Ovary: 2.4 x 1.3 x 2.2 cm, volume 3.6 cc. Normal echotexture and blood flow. Free Fluid: None. Other: None. IMPRESSION: Normal pelvic ultrasound. RADIA
== END 2018-07-21 17:21 | disposition home or self-care (01) ==
LOC: DI 17:20
PROVIDERS: ATTEND Physician Assistant
DX: N92.0 Excessive and frequent menstruation with regular cycle (principal)
CPT/HCPCS: 76830; 76856

== ENCOUNTER 2020-03-30 14:33 | Outpatient (CLI) | payer MEDICAID, OTHER ==
--- NOTE | 2020-03-31 08:57 | XRAY Report ---
PROCEDURE: Ankle 3 View LT INDICATIONS: L HEEL PX TECHNIQUE: 3 views of the ankle were acquired. COMPARISON: None FINDINGS: Bones: No fractures or dislocations. Ankle mortise is normally aligned. No suspicious bony lesions . Soft tissues: No tibiotalar joint effusion. Achilles tendon appears normal. IMPRESSION: No trauma found. Source of pain is not identified. Reviewed by: Diego Elkins MD on 03/31/2020 8:55 AM [facility] Approved by: Diego Elkins MD on 03/31/2020 8:55 AM [facility] Station ID: [id number]
== END 2020-03-30 23:59 | disposition home or self-care (01) ==
LOC: DI.N 14:33
PROVIDERS: ATTEND Family Medicine
DX: M79.672 Pain in left foot (principal)

== ENCOUNTER 2021-10-12 11:19 | Outpatient (CLI) | payer MEDICAID | END 2021-10-12 11:20 | disposition home or self-care (01) | LOC: LAB.N 11:19 | PROVIDERS: ATTEND Psychiatry & Neurology Psychiatry | DX: F33.1 Major depressive disorder, recurrent, moderate (principal) | CPT/HCPCS: 36415; 80178 ==

== ENCOUNTER 2022-04-16 08:00 | Outpatient (CLI) | payer MEDICAID ==
[2022-04-16 17:48] LABS: BILIRUBIN,URINE NEGATIVE (NEGATIVE); GLUCOSE, URINE (UA) NEGATIVE (NEGATIVE); KETONES,URINE (UA) NEGATIVE (NEGATIVE); LEUKOCYTE ESTERASE, URINE NEGATIVE (NEGATIVE); NITRITE,URINE NEGATIVE (NEGATIVE); OCCULT BLOOD,URINE NEGATIVE (NEGATIVE); PROTEIN,URINE NEGATIVE (NEGATIVE); UROBILINOGEN,URINE 0.2 (NORMAL) E.U./dL (NORMAL)
[2022-04-16 18:09] LABS: BACTERIA,URINE None Seen /HPF (None Seen); CLARITY,URINE CLEAR (CLEAR); RBC,URINE None Seen /HPF (0-5); SQUAMOUS EPITHELIAL CELL,UR FEW Squamous (<= Few); WBC,URINE 0-3 /HPF (0-5)
== END 2022-04-16 23:59 | disposition home or self-care (01) ==
LOC: LAB.N 08:00
PROVIDERS: ATTEND Registered Nurse
DX: R82.998 Other abnormal findings in urine (principal)
CPT/HCPCS: 81001; 87086

== ENCOUNTER 2022-04-19 11:47 | Emergency (ER) | payer MEDICAID ==
--- OUTSIDE RECORDS SUMMARY | 2022-04-19 12:05 | EXTERNAL MEDICAL SUMMARY RPT | Continuity of Care Document ---
:1985 Author Organization [facility] Address [address] [place] [address] Phone Allergies No information. Encounters No information. Functional Status No information. Immunizations No information. Medications No information. Problems date description facility 2022-04-08 12:07 Major depressive disorder, recurrent, [facility] 2022-04-08 12:07 Benign paroxysmal vertigo, unspecified [facility] 2022-04-08 12:07 [facility] 2022-04-08 12:09 Major depressive disorder, recurrent, [facility] 2022-04-08 12:09 Benign paroxysmal vertigo, unspecified [facility] 2022-04-08 12:09 [facility] 2022-04-12 13:21 Hypothyroidism, unspecified [facility] 2022-04-12 13:21 Right upper quadrant pain [facility] Procedures No information. Results/Labs test date author facility value unit interpret ation Result panel 1 (unknown) (no date) (unknown) (unknown) 0.6 mmol/l (unkn own) Result panel 2 (unknown) (no date) (unknown) (unknown) > 60 ml/min (unkn own) (unknown) (no date) (unknown) (unknown) > 60 ml/min (unkn own) (unknown) (no date) (unknown) (unknown) 1.13 mg/dl (unkn own) (unknown) (no date) (unknown) (unknown) 7.1 (units unknown) (unknown) (unknown) (no date) (unknown) (unknown) 8 mg/dl (unkn own) Result panel 3 (unknown) (no date) (unknown) (unknown) 1.0 % (unkn own) (unknown) (no date) (unknown) (unknown) 1.7 % (unkn own) (unknown) (no date) (unknown) (unknown) 100 /ul (unkn own) (unknown) (no date) (unknown) (unknown) 100 /ul (unkn own) (unknown) (no date) (unknown) (unknown) 1100 /ul (unkn own) (unknown) (no date) (unknown) (unknown) 13.9 % (unkn own) (unknown) (no date) (unknown) (unknown) 14.7 g/dl (unkn own) (unknown) (no date) (unknown) (unknown) 19.4 % (unkn own) (unknown) (no date) (unknown) (unknown) 278 x10 3/ul (unkn own) (unknown) (no date) (unknown) (unknown) 28.9 pg (unkn own) (unknown) (no date) (unknown) (unknown) 300 /ul (unkn own) (unknown) (no date) (unknown) (unknown) 32.9 % (unkn own) (unknown) (no date) (unknown) (unknown) 4000 /ul (unkn own) (unknown) (no date) (unknown) (unknown) 44.5 % (unkn own) (unknown) (no date) (unknown) (unknown) 5.08 x10 6/ul (unkn own) (unknown) (no date) (unknown) (unknown) 5.6 % (unkn own) (unknown) (no date) (unknown) (unknown) 5.6 x10 3/ul (unkn own) (unknown) (no date) (unknown) (unknown) 72.3 % (unkn own) (unknown) (no date) (unknown) (unknown) 87.7 fl (unkn own) Result panel 4 (unknown) (no date) (unknown) (unknown) 3 mm/hr (unkn own) Result panel 5 (unknown) (no date) (unknown) (unknown) > 60 ml/min (unkn own) (unknown) (no date) (unknown) (unknown) > 60 ml/min (unkn own) (unknown) (no date) (unknown) (unknown) < 0.5 mg/dl (unkn own) (unknown) (no date) (unknown) (unknown) 0.2 mg/dl (unkn own) (unknown) (no date) (unknown) (unknown) 1.08 mg/dl (unkn own) (unknown) (no date) (unknown) (unknown) 103 mmol/l (unkn own) (unknown) (no date) (unknown) (unknown) 140 mmol/l (unkn own) (unknown) (no date) (unknown) (unknown) 17 iu/l (unkn own) (unknown) (no date) (unknown) (unknown) 18 iu/l (unkn own) (unknown) (no date) (unknown) (unknown) 26 mmol/l (unkn own) (unknown) (no date) (unknown) (unknown) 4.1 mmol/l (unkn own) (unknown) (no date) (unknown) (unknown) 48 u/l (unkn own) (unknown) (no date) (unknown) (unknown) 67 mg/dl (unkn own) (unknown) (no date) (unknown) (unknown) 67 mg/dl (unkn own) (unknown) (no date) (unknown) (unknown) 7.4 (units unknown) (unknown) (unknown) (no date) (unknown) (unknown) 7.6 g/dl (unkn own) (unknown) (no date) (unknown) (unknown) 8 mg/dl (unkn own) (unknown) (no date) (unknown) (unknown) 8.6 mg/dl (unkn own) Result panel 6 (unknown) (no date) (unknown) (unknown) > 60 ml/min (unkn own) (unknown) (no date) (unknown) (unknown) > 60 ml/min (unkn own) (unknown) (no date) (unknown) (unknown) < 0.5 mg/dl (unkn own) (unknown) (no date) (unknown) (unknown) 0.2 mg/dl (unkn own) (unknown) (no date) (unknown) (unknown) 1.08 mg/dl (unkn own) (unknown) (no date) (unknown) (unknown) 1.4 (units unknown) (unknown) (unknown) (no date) (unknown) (unknown) 103 mmol/l (unkn own) (unknown) (no date) (unknown) (unknown) 140 mmol/l (unkn own) (unknown) (no date) (unknown) (unknown) 17 iu/l (unkn own) (unknown) (no date) (unknown) (unknown) 18 iu/l (unkn own) (unknown) (no date) (unknown) (unknown) 26 mmol/l (unkn own) (unknown) (no date) (unknown) (unknown) 3.2 g/dl (unkn own) (unknown) (no date) (unknown) (unknown) 4.1 mmol/l (unkn own) (unknown) (no date) (unknown) (unknown) 4.4 g/dl (unkn own) (unknown) (no date) (unknown) (unknown) 48 u/l (unkn own) (unknown) (no date) (unknown) (unknown) 67 mg/dl (unkn own) (unknown) (no date) (unknown) (unknown) 67 mg/dl (unkn own) (unknown) (no date) (unknown) (unknown) 7.4 (units unknown) (unknown) (unknown) (no date) (unknown) (unknown) 7.6 g/dl (unkn own) (unknown) (no date) (unknown) (unknown) 8 mg/dl (unkn own) (unknown) (no date) (unknown) (unknown) 8.6 mg/dl (unkn own) Result panel 7 (unknown) (no date) (unknown) (unknown) 40.70 uiu/ml (unkn own) Result panel 8 (unknown) (no date) (unknown) (unknown) 0.44 ng/dl (unkn own) (unknown) (no date) (unknown) (unknown) 40.70 uiu/ml (unkn own) Result panel 9 (unknown) (no date) (unknown) (unknown) 40.70 uiu/ml (unkn own) Social History No information. Vital Signs No information.
--- NOTE | 2022-04-19 12:30 | ED Physician Documentation ---
PD HPI ABD PAIN - Stated complaint Stated Complaint: ABD PX - Chief complaint Chief Complaint: Abd Pain - History obtained from History obtained from: Patient, Family - Additional information Additional information: 36-year-old woman with history of depression with anxiety presents for ongoing odd symptoms. She is here with her and 4-year-old daughter. For several months now she is had a brain fog with increasing tremor. She developed some diarrhea and then it transitioned to constipation over the last few weeks with pale-colored stools. Over the last 2 weeks she has developed stabbing right lower quadrant pain. She takes control and only has a period every 4 months or so. She is noted "tissue like material" in her urine, but an outpatient urinalysis was done and negative. She saw her primary care PA who ordered an ultrasound but it has not yet been scheduled. She denies significant weight changes. She notes no hair, skin, or nail changes. No vaginal bleeding or discharge. She has had outpatient labs done which are not available to me but were reportedly normal including a lithium level. She had a TSH suggesting hypothyroidism but she doubts the results are accurate because she is taking biotin. Review of Systems Constitutional: denies: Fever, Chills, Myalgias, Fatigue Nose: denies: Rhinorrhea / runny nose, Congestion Cardiac: denies: Chest pain / pressure, Palpitations Respiratory: reports: Dyspnea. denies: Cough GI: reports: Abdominal Pain, Constipation, Diarrhea. denies: Nausea, Vomiting : denies: Dysuria, Frequency PD PAST MEDICAL HISTORY - Past Medical History Past Medical History: Yes Psych: Depression, Anxiety - Present Medications Home Medications: Ambulatory Orders Medication Instructions Recorded Confirmed Lactulose [Generlac] 10 gm PO QID PRN #300 ml 04/19/22 - Allergies Allergies/Adverse Reactions: Allergies Allergy/AdvReac Type Severity Reaction Status Date / Time erythromycin base Allergy Hives Verified 04/19/22 11:59 [From Erythrocin] lamotrigine [From Lamictal] Allergy Rash Verified 04/19/22 11:59 lanolin Allergy Rash Verified 04/19/22 11:59 Sulfa (Sulfonamide Allergy Rash Verified 04/19/22 11:59 Antibiotics) - Living Situation Living Situation: reports: With spouse/s.o. - Social History Smoking Status: Former smoker PD ED PE NORMAL - Vitals Vital signs reviewed: Yes - General General: Alert and oriented X 3, No acute distress, Other (Mild fine tremor) - HEENT HEENT: PERRL, EOMI, Other (Anicteric) - Neck Neck: Supple, no meningeal sign, No bony TTP - Cardiac Cardiac: RRR, No murmur - Respiratory Respiratory: No respiratory distress, Clear bilaterally - Abdomen Abdomen: Normal bowel sounds, Soft, Other (Mild right lower quadrant tenderness more medial than McBurney's point and more inferior than McBurney's point.) - Back Back: No CVA TTP, No spinal TTP - Derm Derm: Normal color, Warm and dry - Extremities Extremities: No edema, No calf tenderness / cord - Neuro Neuro: Alert and oriented X 3, Normal speech Eye Opening: Spontaneous Motor: Obeys Commands Verbal: Oriented GCS Score: 15 Results - Vitals Vitals: Vital Signs - 24 hr 04/19/22 04/19/22 04/19/22 11:53 13:42 15:56 Temperature 36.6 C Heart Rate 82 73 83 Respiratory 16 18 14 Rate Blood Pressure 133/91 H 119/81 H 125/85 H O2 Saturation 100 100 99 Oxygen O2 Source Room air - Labs Labs: Laboratory Tests 04/19/22 04/19/22 04/19/22 12:33 12:33 12:46 WBC 5.0 RBC 4.76 Hgb 13.7 Hct 42.4 MCV 89.1 MCH 28.8 MCHC 32.3 RDW 13.0 Plt Count 275 MPV 9.1 Neut # (Auto) 3.8 Lymph # (Auto) 0.9 L [place] # (Auto) 0.3 Eos # (Auto) 0.1 Baso # (Auto) 0.0 Absolute Nucleated RBC 0.00 Nucleated RBC % 0.0 Sodium Potassium Chloride Carbon Dioxide Anion Gap BUN Creatinine Estimated GFR (MDRD) Glucose Calcium Total Bilirubin AST ALT Alkaline Phosphatase Total Protein Albumin Globulin Albumin/Globulin Ratio Lipase Urine Color YELLOW Urine Clarity CLEAR Urine pH 7.5 Ur Specific [place] 1.010 Urine Protein NEGATIVE Urine Glucose (UA) NEGATIVE Urine Ketones NEGATIVE Urine Occult Blood NEGATIVE Urine Nitrite NEGATIVE Urine Bilirubin NEGATIVE Urine Urobilinogen 0.2 (NORMAL) Ur Leukocyte Esterase NEGATIVE Ur Microscopic Review NOT INDICATED Urine Culture Comments NOT INDICATED Urine HCG, Qual NEGATIVE Last Dose Date Not Reportable Last Dose Time Not Reportable [place] 0.79 04/19/22 12:52 WBC RBC Hgb Hct MCV MCH MCHC RDW Plt Count MPV Neut # (Auto) Lymph # (Auto) [place] # (Auto) Eos # (Auto) Baso # (Auto) Absolute Nucleated RBC Nucleated RBC % Sodium 133 L Potassium 3.9 Chloride 100 L Carbon Dioxide 23 Anion Gap 10.0 BUN 10 Creatinine 1.2 H Estimated GFR (MDRD) 50 L Glucose 79 Calcium 9.1 Total Bilirubin 0.7 AST 16 ALT 12 Alkaline Phosphatase 44 Total Protein 7.3 Albumin 4.3 Globulin 3.0 Albumin/Globulin Ratio 1.4 Lipase 47 Urine Color Urine Clarity Urine pH Ur Specific [place] Urine Protein Urine Glucose (UA) Urine Ketones Urine Occult Blood Urine Nitrite Urine Bilirubin Urine Urobilinogen Ur Leukocyte Esterase Ur Microscopic Review Urine Culture Comments Urine HCG, Qual Last Dose Date Last Dose Time [place] - Rads (name of study) CT a/p, pelvic/abd sono Radiology: Final report received, EMP read indepedently PD Medical Decision Making - ED course ED course: 36-year-old woman with odd complaints of joint pain, right lower quadrant pain, tremor etc. Thorough work-up was not done in the emergency department including a CBC which was normal, CMP notable for mildly elevated creatinine which is chronic, normal urinalysis, lithium level in the normal range, CT abdomen and pelvis showing constipation, and pelvic and abdominal ultrasounds which were basically normal. At this point the only treatable diagnosis per se is the constipation which we will prescribe lactulose for. She is following up with her physician next week for further evaluation and treatment. No emergency medical condition identified. Departure - Departure Disposition: 01 Home, Self Care Clinical Impression: Abdominal pain Qualifiers: Abdominal location: right lower quadrant Qualified Code(s): R10.31 - Right lower quadrant pain Constipation Qualifiers: Constipation type: slow transit constipation Qualified Code(s): K59.01 - Slow transit constipation Condition: Good Record reviewed to determine appropriate education?: Yes Instructions: ED Abdominal Pain Female Non-Specific Abdominal Pain, ED Constipation Prescriptions: Lactulose [Generlac] 10 gm PO QID PRN #300 ml PRN Reason: Constipation Comments: You are seen today for a variety of concerning symptoms. As discussed while you were here, blood work was basically normal save a modestly elevated creatinine that is likely chronic, and low therapeutic lithium level. CT of the abdomen and pelvis was done with significant stool load and this may be causing some of your current symptomatology. The remainder of your work-up was negative save a cervical calcification which really should not cause symptoms per se. I sent a prescription for a strong laxative to [facility] in [place]. Follow-up with RAMIN Tatum on Friday as scheduled. If not better, consider referrals for GI plus or minus rheumatology given the concern for autoimmune disease. Return for new or worsening symptoms. Discharge Date/Time: 04/19/22 16:30
[2022-04-19 12:40] LABS: BASOPHILS % (AUTO) 0.8 %; EOSINOPHILS # (AUTO) 0.1 10^3/uL (0.0-0.7); EOSINOPHILS % (AUTO) 1.2 %; HCT - HEMATOCRIT 42.4 % (37.0-47.0); HGB - HEMOGLOBIN 13.7 g/dL (12.0-16.0); LYMPHOCYTES # (AUTO) 0.9 10^3/uL (1.5-3.5); LYMPHOCYTES % (AUTO) 17.2 %; MEAN CORPUSCULAR HEMOGLOBIN 28.8 pg (27.0-31.0); MEAN CORPUSCULAR HGB CONC 32.3 g/dL (32.0-36.0); MEAN CORPUSCULAR VOLUME 89.1 fL (81.0-99.0); MEAN PLATELET VOLUME 9.1 fL (7.9-10.8); MONOCYTES # (AUTO) 0.3 10^3/uL (0.0-1.0); NEUTROPHILS # (AUTO) 3.8 10^3/uL (1.5-6.6); NEUTROPHILS % (AUTO) 75.4 %; PLT - PLATELET COUNT 275 10^3/uL (130-450); RED BLOOD COUNT 4.76 10^6/uL (4.20-5.40)
[2022-04-19 12:53] LABS: BILIRUBIN,URINE NEGATIVE (NEGATIVE); GLUCOSE, URINE (UA) NEGATIVE (NEGATIVE); KETONES,URINE (UA) NEGATIVE (NEGATIVE); LEUKOCYTE ESTERASE, URINE NEGATIVE (NEGATIVE); NITRITE,URINE NEGATIVE (NEGATIVE); OCCULT BLOOD,URINE NEGATIVE (NEGATIVE); PH,URINE 7.5 PH (5.0-7.5); PROTEIN,URINE NEGATIVE (NEGATIVE); UROBILINOGEN,URINE 0.2 (NORMAL) E.U./dL (NORMAL)
[2022-04-19 12:55] LABS: CLARITY,URINE CLEAR (CLEAR); HCG UR QUAL NEGATIVE
[2022-04-19] MEDS ORDERED: iohexoL-300 100 ML VIAL ONE (13:04)
[2022-04-19 13:08] LABS: ALBUMIN 4.3 g/dL (3.2-5.5); ALBUMIN/GLOBULIN RATIO 1.4 (1.0-2.2); BILIRUBIN,TOTAL 0.7 mg/dL (0.2-1.0); CALCIUM 9.1 mg/dL (8.5-10.3); CREATININE 1.2 mg/dL (0.4-1.0); POTASSIUM 3.9 mmol/L (3.5-5.0); TOTAL PROTEIN 7.3 g/dL (6.7-8.2)
[2022-04-19 13:23] LABS: LITHIUM 0.79 mmol/L
[2022-04-19] MEDS ORDERED: iohexoL-300 100 ML VIAL IVP ONE (13:50)
--- NOTE | 2022-04-19 13:53 | CT Report ---
PROCEDURE: ABDOMEN/PELVIS W INDICATIONS: IV only, RLQ pain CONTRAST: 100ml omni 300 TECHNIQUE: After the administration of intravenous contrast, 5 mm thick sections acquired from the diaphragms to the symphysis. 5 mm thick coronal and sagittal reformats were acquired. For radiation dose reducti on, the following was used: automated exposure control, adjustment of mA and/or kV according to reji ent size. COMPARISON: None. FINDINGS: Image quality: Excellent. ABDOMEN: Lung bases: Lung bases are clear. Heart size is normal. Solid organs: Liver and spleen are normal in size and enhancement. Gallbladder Biliary system is non dilated. Pancreas enhances normally. No adrenal nodules. Kidneys demonstrate normal size an d enhancement, without hydronephrosis. Peritoneum and bowel: Bowel loops demonstrate normal wall thickness and caliber. The appendix is thi n-walled and gas-filled. A large amount of inspissated stool is present throughout the distal colon. No free fluid or air. Nodes and vessels: No retroperitoneal or mesenteric adenopathy by size criteria. Aorta and inferior vena cava are normal in size. Miscellaneous: No ventral hernias. PELVIS: Genitourinary: Bladder wall thickness is normal. Miscellaneous: No inguinal hernias or adenopathy. Bones: No suspicious bony lesions. No vertebral body compression fractures. IMPRESSION: 1. No acute intra-abdominal findings. Normal appendix. 2. Large amount of inspissated stool visualized throughout the distal colon which may be the etiology of the patient's pain. Reviewed by: Rayne Lozada MD on 04/19/2022 1:[address] [facility] Approved by: Rayne Lozada MD on 04/19/2022 1:52 PM PST Station ID: [id number]
[2022-04-19 15:57] VITALS: BP 125/85
--- NOTE | 2022-04-19 16:09 | Ultrasound Report ---
PROCEDURE: Abdomen Limited INDICATIONS: R abd pain TECHNIQUE: Real-time focused scanning was performed of the abdomen, with image documentation. COMPARISON: 04/19/2022 CT abdomen and pelvis. FINDINGS: Normal hepatic parenchymal echogenicity and echotexture. No focal hepatic mass. No intrahe patic or extrahepatic biliary duct dilatation. Normally distended gallbladder without wall thickening or pericholecystic fluid. No sludge or gallstone. Visualized portions of the pancreas are normal. Ri ght kidney unremarkable. IMPRESSION: Normal study. Reviewed by: Tyler Odonnell MD on 04/19/2022 4:08 PM PST Approved by: Tyler Odonnell MD on 04/19/2022 4:08 PM PST Station ID: [id number]
--- NOTE | 2022-04-19 16:24 | Ultrasound Report ---
PROCEDURE: Pelvic w/Doppler Complete INDICATIONS: R abd pain TECHNIQUE: Real-time scanning was performed of the pelvic organs, with image documentation. Additional endovagi nal scanning was necessary due to incomplete visualization of the adnexal and endometrial structures by transabdominal scanning. COMPARISON: None. FINDINGS: Uterus: Uterus is anteverted and normal in size at 7.2 x 3.6 x 3.4 cm. The myometrium is homogeneou s. The endometrium measures 6.2 mm in combined thickness. Echogenic foci within the internal os sug gest the presence of punctate calcifications. Ovaries: The right ovary measures 2.6 x 1.4 x 1.8 cm, with a calculated ovarian volume of 3.4 cc. T he left ovary measures 2.2 x 1.3 x 1.5 cm, with a calculated ovarian volume of 2.3 cc. The ovaries h ave a normal sonographic appearance. Less than 12 follicles can be seen in each ovary. No adnexal m asses are seen. Other: No pathologic free abdominal or pelvic fluid. IMPRESSION: Unremarkable pelvic ultrasound. Reviewed by: Rayne Lozada MD on 04/19/2022 4:23 PM PST Approved by: Rayne Lozada MD on 04/19/2022 4:23 PM PST Station ID: [id number]
== END 2022-04-19 16:30 | disposition home or self-care (01) ==
LOC: ED 11:47
DX: K59.01 Slow transit constipation (principal)
CPT/HCPCS: 36415; 74177; 76705; 76856; 80053; 80178; 81003; 81025; 83690; 85025; 93975; 99284; Q9967; 81001; 87086

== ENCOUNTER 2022-04-26 12:26 | Outpatient (CLI) | payer MEDICAID ==
[2022-04-26 21:22] LABS: THYROID STIMULATING HORMONE 66.55 uIU/mL (0.34-5.60)
[2022-04-26 21:58] LABS: FREE T4 (FREE THYROXINE) 0.36 ng/dL (0.58-1.64)
== END 2022-04-26 12:27 | disposition home or self-care (01) ==
LOC: LAB.N 12:26
PROVIDERS: ATTEND Physician Assistant Medical
DX: E03.9 Hypothyroidism, unspecified (principal)
CPT/HCPCS: 36415; 84439; 84443

== ENCOUNTER 2022-05-20 10:48 | Outpatient (CLI) | payer MEDICAID ==
[2022-05-20 18:04] LABS: THYROID STIMULATING HORMONE 13.09 uIU/mL (0.34-5.60)
[2022-05-20 18:38] LABS: FREE T4 (FREE THYROXINE) 0.96 ng/dL (0.58-1.64)
== END 2022-05-20 10:49 | disposition home or self-care (01) ==
LOC: LAB.N 10:48
PROVIDERS: ATTEND Family Medicine
DX: E03.9 Hypothyroidism, unspecified (principal)
CPT/HCPCS: 36415; 84439; 84443

== ENCOUNTER 2022-05-29 13:15 | Outpatient (CLI) | payer MEDICAID ==
[2022-05-29 18:13] LABS: THYROID STIMULATING HORMONE 3.89 uIU/mL (0.34-5.60)
== END 2022-05-29 13:16 | disposition home or self-care (01) ==
LOC: LAB.N 13:15
PROVIDERS: ATTEND Family Medicine
DX: E03.9 Hypothyroidism, unspecified (principal)
CPT/HCPCS: 36415; 84443

== ENCOUNTER 2022-06-17 13:39 | Outpatient (CLI) | payer MEDICAID ==
[2022-06-17 18:21] LABS: THYROID STIMULATING HORMONE 4.31 uIU/mL (0.34-5.60)
== END 2022-06-17 13:40 | disposition home or self-care (01) ==
LOC: LAB.N 13:39
PROVIDERS: ATTEND Physician Assistant Medical
DX: E03.9 Hypothyroidism, unspecified (principal)
CPT/HCPCS: 36415; 84443

== ENCOUNTER 2022-08-16 10:53 | Outpatient (CLI) | payer MEDICAID ==
[2022-08-16 18:21] LABS: THYROID STIMULATING HORMONE 3.58 uIU/mL (0.34-5.60)
== END 2022-08-16 10:54 | disposition home or self-care (01) ==
LOC: LAB.N 10:53
PROVIDERS: ATTEND Physician Assistant Medical
DX: E03.9 Hypothyroidism, unspecified (principal)
CPT/HCPCS: 36415; 84443

== ENCOUNTER 2022-09-06 11:07 | Outpatient (CLI) | payer MEDICAID ==
[2022-09-06 17:43] LABS: THYROID STIMULATING HORMONE 2.67 uIU/mL (0.34-5.60)
== END 2022-09-06 11:08 | disposition home or self-care (01) ==
LOC: LAB.N 11:07
PROVIDERS: ATTEND Physician Assistant Medical
DX: E03.9 Hypothyroidism, unspecified (principal)
CPT/HCPCS: 36415; 84443

== ENCOUNTER 2022-10-21 10:27 | Outpatient (CLI) | payer MEDICAID ==
[2022-10-21 12:54] LABS: THYROID STIMULATING HORMONE 2.84 uIU/mL (0.34-5.60)
== END 2022-10-21 10:28 | disposition home or self-care (01) ==
LOC: LAB.N 10:27
PROVIDERS: ATTEND Physician Assistant Medical
DX: E03.9 Hypothyroidism, unspecified (principal)
CPT/HCPCS: 36415; 84443

== ENCOUNTER 2022-11-19 13:28 | Outpatient (CLI) | payer MEDICAID | END 2022-11-19 13:29 | disposition home or self-care (01) | LOC: LAB.N 13:28 | PROVIDERS: ATTEND Physician Assistant Medical | DX: Z53.9 Procedure and treatment not carried out, unspecified reason (principal) | CPT/HCPCS: 36415; 84443 ==

== ENCOUNTER 2022-12-02 11:35 | Outpatient (CLI) | payer MEDICAID ==
[2022-12-02 18:35] LABS: THYROID STIMULATING HORMONE 3.65 uIU/mL (0.34-5.60)
== END 2022-12-02 11:36 | disposition home or self-care (01) ==
LOC: LAB.N 11:35
PROVIDERS: ATTEND Physician Assistant Medical
DX: E03.9 Hypothyroidism, unspecified (principal)
CPT/HCPCS: 36415; 84443

== ENCOUNTER 2022-12-23 10:49 | Outpatient (CLI) | payer MEDICAID ==
[2022-12-23 19:07] LABS: RHEUMATOID FACTOR NEGATIVE (Negative)
[2022-12-25 19:07] LABS: ANTI-DNA (DS) AB QN 1 IU/mL (0-9)
== END 2022-12-23 10:50 | disposition home or self-care (01) ==
LOC: LAB.N 10:49
PROVIDERS: ATTEND Physician Assistant Medical
DX: M25.50 Pain in unspecified joint (principal)
CPT/HCPCS: 36415; 86038; 86225; 86430

== ENCOUNTER 2023-02-05 13:48 | Outpatient (CLI) | payer MEDICAID ==
[~2023-02-05 13:48] MED LIST: GADOTERATE MEGLUMINE 10 MMOL/20 ML VIAL ONE
--- NOTE | 2023-02-05 15:45 | MRI Report ---
PROCEDURE: BRAIN W/WO INDICATIONS: MEMORY LOSS, MIGRAINE CONTRAST: 12.2ml Clariscan TECHNIQUE: Noncontrast axial T1 spin echo, axial T2 fast spin echo, sagittal and axial FLAIR, coronal T2 fast sp in echo, axial gradient echo, axial diffusion and ADC through the brain. After the administration of contrast, axial and coronal T1 spin echo with fat saturation through the brain. COMPARISON: None. FINDINGS: Image quality: Excellent. CSF spaces: Basal cisterns are patent. No extra-axial fluid collections. Ventricles are normal in size and shape. Brain: No midline shift. No intracranial bleeds or masses. No abnormal intracranial enhancement. There is cerebral volume loss for age. There is periventricular white matter chronic small vessel is chemic change. The brainstem appears normal. Diffusion-weighted images demonstrate no acute ischemi c insults. No chronic ischemic insults. Normal intravascular flow voids are present. Skull and face: Calvarial marrow is normal in signal. Orbits appear normal. Sinuses: Sinuses and mastoids appear clear. IMPRESSION: Normal brain MRI, without a cause of the patient's presenting history identified. No masses or abnormal enhancement can be seen. Negative for hydrocephalus or brain edema. Reviewed by: Bentley Sanz MD on 02/05/2023 2:44 PM [facility] Approved by: Bentley Sanz MD on 02/05/2023 2:44 PM [facility] Station ID: [id number]
[2023-02-05] MEDS: GADOTERATE MEGLUMINE 10 MMOL/20 ML VIAL IVP ONE (17:31)
== END 2023-02-05 13:49 | disposition home or self-care (01) ==
LOC: DI 13:48
PROVIDERS: ATTEND Physician Assistant Medical
DX: R41.3 Other amnesia (principal); G43.909 Migraine, unspecified, not intractable, without status migrainosus
CPT/HCPCS: 70553; A9575

== ENCOUNTER 2023-06-27 10:22 | Outpatient (CLI) | payer MEDICAID ==
[2023-06-27 12:02] LABS: LITHIUM 0.78 mmol/L
[2023-06-27 12:48] LABS: THYROID STIMULATING HORMONE 3.48 uIU/mL (0.34-5.60)
== END 2023-06-27 10:23 | disposition home or self-care (01) ==
LOC: LAB.N 10:22
DX: F33.1 Major depressive disorder, recurrent, moderate (principal); E03.9 Hypothyroidism, unspecified
CPT/HCPCS: 36415; 80178; 84443